=== PATIENT | female | born 1955 | race Caucasian/White ===

== ENCOUNTER 2017-05-15 06:47 | Day surgery (SDC) | payer OTHER ==
[2017-05-10 14:40] VITALS: BMI 33.0
[~2017-05-15 06:47] MED LIST: LACTATED RINGERS 1,000 ML IV SCH; LIDOCAINE 1% 20 ML VIAL (10MG/ML) FOR IV START INTRADERMA PRN
[2017-05-15 07:06] VITALS: TEMP 97.4
[2017-05-15] MEDS ORDERED: PROPOFOL 10 MG/ML 20 ML VIAL IV ONE (07:48)
--- NOTE | 2017-05-15 08:07 | P.GSHP ---
History of Present Illness H&P Date: 05/15/17 Chief Complaint: Screening colonoscopy This is a 61-year-old female who presents today for screening colonoscopy. Patient has a strong family history of colon cancer with her father having colon cancer. Patient's last colonoscopy was over 5 years ago. - Constitutional Constitutional: Reports as per HPI Past Medical History Past Medical History: Hypertension Additional Past Medical History / Comment(s): STILL RECOVERING FROM SHINGLES FROM OVER A YEAR AGO INSIDE OF HEAD BY LT EAR. [employer] R/T SHINGLES- RESOLVED BUT LT SIDE OF FACE IS STILL NUMB History of Any Multi-Drug Resistant Organisms: None Reported Past Surgical History: Bariatric Surgery, Cholecystectomy, Orthopedic Surgery Additional Past Surgical History / Comment(s): BILAT -CTR. COLONOSCOPY. EGD Past Anesthesia/Blood Transfusion Reactions: No Reported Reaction Smoking Status: Never smoker - Past Family History Father Family Medical History: Cancer Medications and Allergies Home Medications Medication Instructions Recorded Confirmed Type Aspirin [Adult Low Dose Aspirin EC] 81 mg PO DAILY 05/10/17 05/15/17 History Atenolol [Atenolol] 100 mg PO HS 05/10/17 05/15/17 History Allergies Allergy/AdvReac Type Severity Reaction Status Date / Time acetaminophen [From Percocet] Allergy Itching Verified 05/10/17 14:33 cephalexin [From Keflex] Allergy SEVERE Verified 05/10/17 14:33 CANKER SORES INSIDE OF MOUTH oxycodone [From Percocet] Allergy Itching Verified 05/10/17 14:33 Tetracyclines Allergy OPTICAL Verified 05/10/17 14:33 SWELLING Surgical - Exam Vital Signs Temp Pulse Resp BP Pulse Ox 97.4 F L 67 20 166/99 99 05/15/17 07:04 05/15/17 07:04 05/15/17 07:04 05/15/17 07:04 05/15/17 07:04 - General well developed, no distress - Eyes PERRL - ENT normal pinna - Neck no masses - Respiratory normal expansion - Cardiovascular Rhythm: regular - Abdomen Abdomen: soft, non tender Assessment and Plan Plan: Family history: Cancer. We'll perform screening colonoscopy.
--- NOTE | 2017-05-15 08:09 | P.OP ---
Date of Procedure: 05/15/17 Preoperative Diagnosis: Screening colonoscopy Postoperative Diagnosis: Diverticulosis Procedure(s) Performed: Colonoscopy Implants: Anesthesia: MAC Surgeon: Santos Sheppard Pathology: none sent Condition: stable Indications for Procedure: Operative Findings: Description of Procedure: Patient's placed on the endoscopy table lateral position. She received IV sedation. The digital rectal exam was performed which revealed no abnormalities. The flexible colonoscope was then placed patient anus and passed throughout the entire colon. The ileocecal valve was visualized. Cecum A, ascending, transverse colon appeared normal. In the descending; was mild diverticular changes. The scope was then brought back the rectum and this appeared normal scope was withdrawn for patient.
[2017-05-15 08:14] VITALS: RESP 16
[2017-05-15 08:28] VITALS: BP 130/84; PULSE 59
== END 2017-05-15 09:01 | disposition home or self-care (01) ==
LOC: ORWHC2ENDO 06:47
PROVIDERS: ATTEND Surgery
DX: Z12.11 Encounter for screening for malignant neoplasm of colon (principal); K57.30 Diverticulosis of large intestine without perforation or abscess without bleeding; Z80.0 Family history of malignant neoplasm of digestive organs; I10 Essential (primary) hypertension; B02.8 Zoster with other complications; G51.0 Bell's palsy; Z79.82 Long term (current) use of aspirin; Z79.899 Other long term (current) drug therapy; Z88.1 Allergy status to other antibiotic agents; Z88.5 Allergy status to narcotic agent
CPT/HCPCS: J2704; G0105; 45378

== ENCOUNTER → 2017-06-04 | Outpatient (CLI) | payer OTHER ==
--- NOTE | 2017-06-04 14:26 | MM ---
Reason for exam: screening (asymptomatic). Last mammogram was performed 1 year and 1 month ago. History: Patient is postmenopausal. Taking other hormone for 2 years. Physical Findings: A clinical breast exam by your physician is recommended on an annual basis and results should be correlated with mammographic findings. MG 3D Screening Mammo W/Cad Bilateral CC and MLO view(s) were taken. Prior study comparison: May 17, 2016, bilateral MG 3d screening mammo w/cad. May 12, 2015, bilateral MG screening mammo w CAD. The breast tissue is heterogeneously dense. This may lower the sensitivity of mammography. Finding: There are grouped/clustered calcifications in the right breast. There is a chronic nodularity in the left breast. New finding since May 17, 2016 and May 12, 2015. ASSESSMENT: Incomplete: need additional imaging evaluation, BI-RAD 0 RECOMMENDATION: Special view mammogram of the right breast. [facility] will attempt to contact patient to return for supplemental views.
== END | disposition home or self-care (01) ==
LOC: RADMAMWWP 09:13
PROVIDERS: ATTEND Family Medicine
DX: Z12.31 Encounter for screening mammogram for malignant neoplasm of breast (principal)
CPT/HCPCS: 77063; G0202

== ENCOUNTER → 2017-06-05 | Outpatient (CLI) | payer OTHER ==
--- NOTE | 2017-06-05 14:27 | MM ---
Reason for exam: additional evaluation requested from abnormal screening. Last mammogram was performed less than 1 month ago. History: Patient is postmenopausal. Taking other hormone for 2 years. Physical Findings: Nurse did not find any significant physical abnormalities on exam. MG 3D Work Up W/Cad RT CC with magnification and MLO with magnification view(s) were taken of the right breast. Prior study comparison: June 04, 2017, bilateral MG 3d screening mammo w/cad. May 17, 2016, bilateral MG 3d screening mammo w/cad. May 12, 2015, bilateral MG screening mammo w CAD. No suspicious group of microcalcifications in the right breast. These results were verbally communicated with the patient and result sheet given to the patient on 06/05/17. ASSESSMENT: Benign, BI-RAD 2 RECOMMENDATION: Follow-up diagnostic mammogram of both breasts in 1 year.
== END | disposition home or self-care (01) ==
LOC: RADMAMWWP 12:47
PROVIDERS: ATTEND Family Medicine
DX: R92.8 Other abnormal and inconclusive findings on diagnostic imaging of breast (principal)
CPT/HCPCS: G0206; G0279